=== PATIENT | female | born 1985 | race Caucasian/White ===

== ENCOUNTER 2019-03-16 11:20 | Emergency (ER) | payer BC, OTHER ==
[2019-03-16 12:33] LABS: Absolute Lymphocytes (CBC) 2.6 K/uL (0.7-4.9); Basophils % 0.7 % (0-1.3); Hematocrit 40.2 % (36.0-45.0); Lymphocytes % 26.8 % (15.3-44.8); RBC Red Blood Cell Count 4.82 M/uL (3.86-4.86)
[2019-03-16 12:45] LABS: Urine Bacteria 20-50 /HPF (<20); Urine Culture Reflex Order REFLEXED; Urine RBC <5 /HPF (NONE SEEN)
[2019-03-16 13:06] LABS: Urine Blood 2+ (NEG); Urine Glucose NEGATIVE (NEG); Urine Protein NEGATIVE (NEG); Urine Specific Gravity >1.030 (1.005-1.030); Urine pH 5.5 (5.0-7.0)
[2019-03-16 13:16] LABS: BUN Blood Urea Nitrogen 10 mg/dL (7-18); Bicarbonate 24 mmol/L (21-32); Glucose Level 76 mg/dL (74-106); HCG, Quantitative 46476 mIU/mL (1-3); Potassium 3.6 mmol/L (3.5-5.1); Sodium Level 140 mmol/L (136-145)
--- NOTE | 2019-03-16 13:48 | RAD REPORT ---
EXAM DESCRIPTION: US - Matter Ml Tm 1 - 03/16/2019 1:23 pm CLINICAL HISTORY: VAGINAL BLEEDING Early . COMPARISON: TRANSVAGINALOB dated 03/06/2013 FINDINGS: A single gestational sac is seen within the uterus. The shape of the sac is within normal limits for gestational age. Within the sac is a single pole with crown-rump length of 2.5 cm, c orrelating to estimated gestational age of 8 weeks 6 days. Estimated date of delivery is 10/20/2019. Heart rate is 158 BPM. The placenta is not yet developed / visualized due to early gestational age. The maternal adnexa and ovaries are within normal limits. Normal Doppler blood flow was demonstrated to both ovaries. IMPRESSION: Single live early intrauterine gestation with estimated gestational age of 8 weeks 6 day s, SONJA 10/20/2019. No unusual or unexpected finding.
--- NOTE | 2019-03-16 14:03 | EDPHYS ---
Physician Documentation [facility] Name: Selma Menon Age: 33 yrs Sex: Female : 1985 Arrival Date: 03/16/2019 Time: 11:26 Bed 6 Private MD: ED Physician Vern Addison HPI: 03/16 12:06 This 33 yrs old Female presents to ER via Ambulatory with complaints of pm1 Vaginal Bleeding, + Preg <12wks. 12:06 The patient presents to the emergency department with vaginal bleeding, that is light, pm1 with no clots, only with wpiing. The estimated gestational age is 9 weeks. course: care: private OB physician, Dr. Braden, Leakage of Fluid: none appreciated, Ultrasound: the patient had an ultrasound, on March 15, 2019, which was normal, Risk/complications: incompetent cervix, PCOS. Previous pregnancies: in previous pregnancies patient has had incompetent cervix. Associated signs and symptoms: Pertinent negatives: abdominal pain, dysuria, fever, nausea, vomiting. The patient has experienced a previous episode, similar to previous miscarriage. The patient has been recently seen by a physician: yesterday. STUFFED CASING TIER: 12:06 3, Full Term 1, 1, Living 1 pm1 12:08 LMP 01/12/2019 iw Historical: - Allergies: 12:11 No Known Allergies; iw - Home Meds: 12:11 None [Active]; iw - PMHx: 12:11 Fibromyalgia; PCOS; iw - PSHx: 12:11 D \T\ C; iw - Immunization history:: Adult Immunizations up to date. - Social history:: Smoking status: Patient/guardian denies using tobacco. - Ebola Screening: : Patient negative for fever greater than or equal to 101.5 degrees Fahrenheit, and additional compatible Ebola Virus Disease symptoms Patient denies exposure to infectious person Patient denies travel to an Ebola-affected area in the 21 days before illness onset No symptoms or risks identified at this time. ROS: 12:06 Constitutional: Negative for fever, chills, and weight loss, Eyes: Negative for injury, pm1 pain, redness, and discharge, ENT: Negative for injury, pain, and discharge, Neck: Negative for injury, pain, and swelling, Cardiovascular: Negative for chest pain, palpitations, and edema, Respiratory: Negative for shortness of breath, cough, wheezing, and pleuritic chest pain, Abdomen/GI: Negative for abdominal pain, nausea, vomiting, diarrhea, and constipation, Back: Negative for injury and pain. 12:06 MS/Extremity: Negative for injury and deformity, Skin: Negative for injury, rash, and discoloration, Neuro: Negative for headache, weakness, numbness, tingling, and seizure. 12:06 : Positive for vaginal bleeding, Negative for urinary symptoms. Exam: 12:06 Constitutional: This is a well developed, well nourished patient who is awake, alert, pm1 and in no acute distress. Head/Face: Normocephalic, atraumatic. Eyes: Pupils equal round and reactive to light, extra-ocular motions intact. Lids and lashes normal. Conjunctiva and sclera are non-icteric and not injected. Cornea within normal limits. Periorbital areas with no swelling, redness, or edema. Neck: Trachea midline, no thyromegaly or masses palpated, and no cervical lymphadenopathy. Supple, full range of motion without nuchal rigidity, or vertebral point tenderness. No Meningismus. Chest/axilla: Normal chest wall appearance and motion. Nontender with no deformity. No lesions are appreciated. Cardiovascular: Regular rate and rhythm with a normal S1 and S2. No gallops, murmurs, or rubs. Normal PMI, no JVD. No pulse deficits. Respiratory: Lungs have equal breath sounds bilaterally, clear to auscultation and percussion. No rales, rhonchi or wheezes noted. No increased work of breathing, no retractions or nasal flaring. Abdomen/GI: Soft, non-tender, with normal bowel sounds. No distension or tympany. No guarding or rebound. No evidence of tenderness throughout. Back: No spinal tenderness. No costovertebral tenderness. Full range of motion. Skin: Warm, dry with normal turgor. Normal color with no rashes, no lesions, and no evidence of cellulitis. MS/ Extremity: Pulses equal, no cyanosis. Neurovascular intact. Full, normal range of motion. 12:06 Neuro: Orientation: is normal, Motor: is normal, moves all fours, Sensation: is normal, no obvious gross deficits. Vital Signs: 12:08 BP 111 / 80; Pulse 99; Resp 16 S; Temp 98.2; Pulse Ox 100% on R/A; Weight 67.59 kg; iw Height 5 ft. 5 in. (165.10 cm); Pain 2/10; 12:36 BP 113 / 72; Pulse 89; Resp 16; Pulse Ox 99% ; sv 13:15 BP 109 / 67; Pulse 101; Resp 18; Pulse Ox 100% on R/A; ae4 14:00 BP 108 / 70; Pulse 93; Resp 16; Pulse Ox 99% ; sv 14:43 BP 108 / 70; Pulse 92; Resp 16; Pulse Ox 99% ; sv 14:52 BP 108 / 70; Pulse 99; Resp 17; Pulse Ox 100% on R/A; ae4 12:08 Body Mass Index 24.79 (67.59 kg, 165.10 cm) iw MDM: 11:50 Patient medically screened. pm1 14:02 Data reviewed: vital signs. Data interpreted: Pulse oximetry: on room air is 100 %. pm1 Interpretation: normal. Counseling: I had a detailed discussion with the patient and/or guardian regarding: the historical points, exam findings, and any diagnostic results supporting the discharge/admit diagnosis, lab results, radiology results, the need for outpatient follow up, to return to the emergency department if symptoms worsen or persist or if there are any questions or concerns that arise at home. 03/16 12:05 Order name: Quantitative Hcg; Complete Time: 13:19 pm1 03/16 12:05 Order name: Abo/rh Typing; Complete Time: 13:02 pm1 03/16 12:05 Order name: Basic Metabolic Panel; Complete Time: 13:19 pm1 03/16 12:05 Order name: CBC with Diff; Complete Time: 12:44 pm1 03/16 12:06 Order name: Urine Microscopic Only; Complete Time: 13:02 pm1 03/16 12:29 Order name: Urine Dipstick--Ancillary (enter results); Complete Time: 13:19 mt 03/16 12:05 Order name: Urine Test (obtain specimen); Complete Time: 12:26 pm1 03/16 12:05 Order name: IV Saline Lock; Complete Time: 12:26 pm1 03/16 12:05 Order name: Labs collected and sent; Complete Time: 12:26 pm1 03/16 12:29 Order name: Urine --Ancillary (enter results); Complete Time: 13:19 mt 03/16 12:48 Order name: Urine Culture EDMA 03/16 13:23 Order name: Matter Eval Tm 1; Complete Time: 14:00 EDMA 03/16 12:05 Order name: NPO; Complete Time: 12:07 pm1 03/16 12:05 Order name: Urine Dipstick-Ancillary (obtain specimen); Complete Time: 12:27 pm1 Administered Medications: 14:38 Drug: Rocephin 1 grams Route: IV; Rate: calculated rate; Site: right antecubital; ae4 14:47 Follow up: Response: No adverse reaction; IV Status: Completed infusion; IV Intake: [id number] Point of Care Testing: Urine : 13:44 hCG Reading: Positive; Control Reading: Positive; ae4 Disposition: 14:59 Co-signature as Attending Physician, Vern Addison MD. rn Disposition: 03/16/19 14:02 Discharged to Home. Impression: Threatened , Urinary tract infection, site not specified. - Condition is Stable. - Discharge Instructions: Threatened Miscarriage, and Urinary Tract Infection, Pelvic Rest. - Prescriptions for Macrobid 100 mg Oral Capsule - take 1 capsule by ORAL route every 12 hours for 10 days; 20 capsule. - Medication Reconciliation Form, Thank You Letter, Antibiotic Education, Prescription Opioid Use form. - Follow up: Emergency Department; When: As needed; Reason: Worsening of condition. Follow up: Private Physician; When: 2 - 3 days; Reason: Recheck today's complaints, Continuance of care, Re-evaluation by your physician. - Problem is new. - Symptoms have improved. Signatures: Dispatcher [employer] [facility] Alena Wall, Vern Faust RN, MD MD rn Marinas, Patrick, MEDICAL LEADER MEDICAL LEADER pm1 Ari Gary RN RN ae4 Corrections: (The following items were deleted from the chart) 13:23 12:06 Transvaginal Ob+US.RAD.BRZ ordered. [facility] 14:02 14:02 03/16/2019 14:02 Discharged to Home. Impression: Threatened . Condition pm1 is Stable. Forms are Medication Reconciliation Form, Thank You Letter, Antibiotic Education, Prescription Opioid Use. Follow up: Emergency Department; When: As needed; Reason: Worsening of condition. Follow up: Private Physician; When: 2 - 3 days; Reason: Recheck today's complaints, Continuance of care, Re-evaluation by your physician. Problem is new. Symptoms have improved. pm1 14:54 14:02 03/16/2019 14:02 Discharged to Home. Impression: Threatened ; Urinary ae4 tract infection, site not specified. Condition is Stable. Forms are Medication Reconciliation Form, Thank You Letter, Antibiotic Education, Prescription Opioid Use. Follow up: Emergency Department; When: As needed; Reason: Worsening of condition. Follow up: Private Physician; When: 2 - 3 days; Reason: Recheck today's complaints, Continuance of care, Re-evaluation by your physician. Problem is new. Symptoms have improved. pm1
--- NOTE | 2019-03-16 14:03 | ER ---
Nurse's Notes [facility] Name: Selma Menon Age: 33 yrs Sex: Female : 1985 Arrival Date: 03/16/2019 Time: 11:26 Bed 6 Private MD: Diagnosis: Threatened ;Urinary tract infection, site not specified Presentation: 03/16 12:04 Presenting complaint: Patient states: is approx 9 weeks , started spotting iw small amount of blood, red, brown, no clots, had US done on with +heart beat. Transition of care: patient was not received from another setting of care. Onset of symptoms was March 16, 2019. Risk Assessment: Do you want to hurt yourself or someone else? Patient reports no desire to harm self or others. Initial Sepsis Screen: Does the patient meet any 2 criteria? No. Patient's initial sepsis screen is negative. Does the patient have a suspected source of infection? No. Patient's initial sepsis screen is negative. Care prior to arrival: None. 12:04 Method Of Arrival: Ambulatory iw 12:04 Acuity: EMILIANO 3 iw HR SHARED SERVICES CONSULTANT: 12:06 3, Full Term 1, 1, Living 1 pm1 12:08 LMP 01/12/2019 iw Historical: - Allergies: 12:11 No Known Allergies; iw - Home Meds: 12:11 None [Active]; iw - PMHx: 12:11 Fibromyalgia; PCOS; iw - PSHx: 12:11 D \T\ C; iw - Immunization history:: Adult Immunizations up to date. - Social history:: Smoking status: Patient/guardian denies using tobacco. - Ebola Screening: : Patient negative for fever greater than or equal to 101.5 degrees Fahrenheit, and additional compatible Ebola Virus Disease symptoms Patient denies exposure to infectious person Patient denies travel to an Ebola-affected area in the 21 days before illness onset No symptoms or risks identified at this time. Screenin:27 Abuse screen: Denies threats or abuse. Nutritional screening: No deficits noted. ae4 Tuberculosis screening: No symptoms or risk factors identified. Fall Risk None identified. Assessment: 12:00 General: Appears in no apparent distress. comfortable, well groomed, Behavior is calm, ae4 cooperative. Pain: Complains of pain in suprapubic area and right lower quadrant Quality of pain is described as crampy. Neuro: Level of Consciousness is awake, alert, obeys commands, Oriented to person, place, time, situation. Cardiovascular: Heart tones S1 S2 present Patient's skin is warm and dry. Respiratory: Airway is patent Respiratory effort is even, unlabored, Respiratory pattern is regular, symmetrical. GI: No signs and/or symptoms were reported involving the gastrointestinal system. EENT: No signs and/or symptoms were reported regarding the EENT system. Derm: Skin is dry, Skin is pink, warm \T\ dry. Musculoskeletal: No signs and/or symptoms reported regarding the musculoskeletal system. 12:53 Reassessment: Ultrasound at the bedside. sv 13:00 Reassessment: gyroscopic engineering technician completed ultrasound, patient up to bathroom, ae4 patient has steady gait. 13:30 Obstetrical Assessment: Patient reports abdominal cramping. Reassessment: Patient ae4 appears in no apparent distress at this time. Patient up to bathroom without assistance. Pain: Complains of pain in right lower quadrant and left lower quadrant Quality of pain is described as crampy. : No signs and/or symptoms were reported regarding the genitourinary system. 14:52 Reassessment: Patient appears in no apparent distress at this time. Patient and/or ae4 family updated on plan of care and expected duration. Pain level reassessed. Patient is alert, oriented x 3, equal unlabored respirations, skin warm/dry/pink. Vital Signs: 12:08 BP 111 / 80; Pulse 99; Resp 16 S; Temp 98.2; Pulse Ox 100% on R/A; Weight 67.59 kg; iw Height 5 ft. 5 in. (165.10 cm); Pain 2/10; 12:36 BP 113 / 72; Pulse 89; Resp 16; Pulse Ox 99% ; sv 13:15 BP 109 / 67; Pulse 101; Resp 18; Pulse Ox 100% on R/A; ae4 14:00 BP 108 / 70; Pulse 93; Resp 16; Pulse Ox 99% ; sv 14:43 BP 108 / 70; Pulse 92; Resp 16; Pulse Ox 99% ; sv 14:52 BP 108 / 70; Pulse 99; Resp 17; Pulse Ox 100% on R/A; ae4 12:08 Body Mass Index 24.79 (67.59 kg, 165.10 cm) iw Vitals: 13:44 Heart Tones Please see ultrasound report.. ae4 ED Course: 11:26 Patient arrived in ED. mr 11:50 Barrett Alcantara, PERLA is PHCP. pm1 11:50 Vern Addison MD is Attending Physician. pm1 12:02 Ari Gary, RN is Primary Nurse. ae4 12:07 Triage completed. iw 12:11 Arm band placed on. iw 12:27 Fall risk band placed. Bed in low position. Call light in reach. Side rails up X 1. ae4 Adult w/ patient. Pulse ox on. NIBP on. 12:27 Inserted saline lock: 20 gauge in right antecubital area, using aseptic technique. ae4 Blood collected. 13:19 Ultrasound completed. Patient tolerated well. Note: pt refuse tv, ta done. sg3 13:24 Matter Eval Tm 1 In Process Unspecified. EDMS 14:54 No provider procedures requiring assistance completed. IV discontinued, intact, ae4 bleeding controlled, No redness/swelling at site. Pressure dressing applied. Administered Medications: 14:38 Drug: Rocephin 1 grams Route: IV; Rate: calculated rate; Site: right antecubital; ae4 14:47 Follow up: Response: No adverse reaction; IV Status: Completed infusion; IV Intake: [id number] Point of Care Testing: Urine : 13:44 hCG Reading: Positive; Control Reading: Positive; ae4 Intake: 14:47 IV: 10ml; Total: 10ml. ae4 Outcome: 14:02 Discharge ordered by MD. pm1 14:54 Discharged to home ambulatory, with family, with significant other. ae4 14:54 Condition: stable 14:54 Discharge instructions given to patient, Instructed on discharge instructions, follow up and referral plans. medication usage, Demonstrated understanding of instructions, Prescriptions given X 1. 14:54 Patient left the ED. ae4 Signatures: Dispatcher [employer] EDMS Magy Ribera RN RN sv Rivera, Abril mr WallAlena RN RN Barrett Alcantara, PERLA MANAGER MATERIALS MANAGEMENT pm1 Xin Tan sg3 Ari Gary, RN RN ae4 Corrections: (The following items were deleted from the chart) 12:08 12:04 Presenting complaint: Patient states: is approx 9 weeks , started iw spotting small amount of blood, red, brown, no clots iw 13:23 13:18 In radiology for Transvaginal Ob+US.RAD.KELECHI. EDMS EDMS
[2019-03-16] MEDS ORDERED: CEFTRIAXONE/SWI 1gm 1 GM/10 ML SYR ONE (14:43)
[2019-03-16 15:02] VITALS: TEMP 98.2
[2019-03-16 15:05] VITALS: BP 108/70
[2019-03-16 15:07] VITALS: O2SAT 100
== END 2019-03-16 14:54 | disposition home or self-care (01) ==
LOC: ER 11:20
DX: O20.0 Threatened abortion (principal); O23.41 Unspecified infection of urinary tract in pregnancy, first trimester; Z3A.09 9 weeks gestation of pregnancy
CPT/HCPCS: 87088; 85025; 87086; 80048; 36415; 86900; 81025; 86901; 84702; 76801; 96374; 99284; J0696; 81003; 81015